=== PATIENT | female | born 1940 | race Caucasian/White ===

== ENCOUNTER 2016-10-20 13:45 | Emergency (ER) | payer OTHER ==
[2016-10-20 13:50] VITALS: TEMP 98.3
[2016-10-20 14:23] VITALS: RESP 18
[2016-10-20] MEDS ORDERED: Lidocaine 1% w Epi 1:100,000 Inj INJ ONE (14:25)
--- NOTE | 2016-10-20 14:28 | C.PDOC ---
History Of Present Illness 76 year old female presents to the ED for evaluation of area of swelling and pain to the posterior midline of the neck for approximately three to four days. Patient was referred from [facility] for incision and drainage. She denies fever or other complaints at this time. Time Seen by Provider: 10/20/16 14:04 Chief Complaint (Nursing): Abnormal Skin Integrity History Per: Patient History/Exam Limitations: no limitations Onset/Duration Of Symptoms: Days (3-4 days ) Current Symptoms Are (Timing): Still Present Quality Of Symptoms: Painful, Swollen Recent travel outside of the [place]: No Additional History Per: Prior Records ([facility] ) Past Medical History Reviewed: Historical Data, Nursing Documentation, Vital Signs Vital Signs: Last Vital Signs Temp 98.3 F 10/20/16 13:48 Pulse 79 10/20/16 15:02 Resp 18 10/20/16 15:02 BP 142/75 10/20/16 15:02 Pulse Ox 98 10/20/16 15:02 - Medical History PMH: Anemia, Depression (NO LONGER), HTN, Hypercholesterolemia, Hypothyroidism Surgical History: Endoscopy - [facility] Procedures HUMERUS BIOPSY (11/07/14) Family History: States: Unknown Family Hx - Social History Hx Alcohol Use: No Hx Substance Use: No Review Of Systems Except As Marked, All Systems Reviewed And Found Negative. Musculoskeletal: Positive for: Neck Pain (posterior midline area of swelling and pain ) Physical Exam - Physical Exam Appears: Well, Non-toxic, No Acute Distress Skin: Warm, Dry, No Rash Head: Atraumatic, Normacephalic Eye(s): bilateral: Normal Inspection, EOMI Nose: Normal Oral Mucosa: Moist Neck: Normal ROM, Supple, Other ((+) 2 cm indurated area with erythema , central pustule noted) Lymphatic: Normal Exam Chest: Symmetrical, No Deformity Cardiovascular: Rhythm Regular Respiratory: Normal Breath Sounds Neurological/Psych: Oriented x3, Normal Speech, Normal Cognition ED Course And Treatment O2 Sat by Pulse Oximetry: 99 (room air ) Progress Note: DIscussed wound care and to return to ER if symptoms persist or worsen. Burr Filer used to ensure understanding. 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 Return to er in 2 days. Prescriptions: Cephalexin [cephalexin] 500 mg PO BID #14 cap Sulfamethoxazole/Trimethoprim [Bactrim DS 800 mg-160 mg] 1 tab PO BID #14 tab Instructions: Abscess Incision and Drainage (ED) Forms: [employer] (Micronesian) Print Language: MALTESE - Clinical Impression Clinical Impression: Abscess - Scribe Statement The provider has reviewed the documentation as recorded by the Scribe Mary Jane Arnold All medical record entries made by the Riaziblindsey were at my direction and personally dictated by me. I have reviewed the chart and agree that the record accurately reflects my personal performance of the history, physical exam, medical decision making, and the department course for this patient. I have also personally directed, reviewed, and agree with the discharge instructions and disposition.
[2016-10-20] MEDS ORDERED: Lidocaine 2% w Epi 1:100,000 Inj IJ ONE (14:29)
[2016-10-20 15:04] VITALS: BP 142/75; PULSE 79
[2016-10-20 16:37] VITALS: O2SAT 99
== END 2016-10-20 15:04 | disposition home or self-care (01) ==
LOC: C.ER 13:45
DX: L02.11 Cutaneous abscess of neck (principal)

== ENCOUNTER 2016-10-22 10:25 | Emergency (ER) | payer OTHER ==
[2016-10-22] MEDS ORDERED: Bacitracin 500 Units/gm Oint Foilpak UD TOP ONE (10:55)
--- NOTE | 2016-10-22 10:58 | C.PDOC ---
History Of Present Illness 76 year old female presents to the ED for wound check, is s/p incision and drainage of an abscess at this posterior neck performed two days ago in [facility] ED. Patient notes abscess has decreased in size and is less painful. She denies fever, nausea, drainage. Time Seen by Provider: 10/22/16 10:38 Chief Complaint (Nursing): Wound Check History Per: Patient History/Exam Limitations: no limitations Onset/Duration Of Symptoms: Days Ago (abscess originally noted 5-6 days ago ), Abscess Current Symptoms Are (Timing): Better Location Of Injury: Posterior: Neck Quality Of Symptoms: Painful Severity: Mild Additional History Per: Prior Records Past Medical History Reviewed: Historical Data, Nursing Documentation, Vital Signs Vital Signs: Last Vital Signs Temp 98.0 F 10/22/16 11:05 Pulse 80 10/22/16 11:05 Resp 14 10/22/16 11:05 BP 151/87 H 10/22/16 11:05 Pulse Ox 97 10/22/16 12:10 - Medical History PMH: Anemia, Depression (NO LONGER), HTN, Hypercholesterolemia, Hypothyroidism Surgical History: Endoscopy - [facility] Procedures HUMERUS BIOPSY (11/07/14) Family History: States: No Known Family Hx - Social History Hx Alcohol Use: No Hx Substance Use: No Review Of Systems Except As Marked, All Systems Reviewed And Found Negative. Constitutional: Negative for: Fever, Chills Cardiovascular: Negative for: Chest Pain, Palpitations Respiratory: Negative for: Cough, Shortness of Breath Gastrointestinal: Negative for: Nausea, Vomiting Skin: Positive for: Other (healing abscess to posterior neck ) Physical Exam - Physical Exam Appears: Well, Non-toxic, No Acute Distress Skin: Warm, Dry, Other (1.5 cm area of induration with mild tenderness to palpation. No drainage.) Eye(s): bilateral: Normal Inspection Oral Mucosa: Moist Cardiovascular: Rhythm Regular Respiratory: Normal Breath Sounds, No Rhonchi, No Wheezing Neurological/Psych: Oriented x3 ED Course And Treatment O2 Sat by Pulse Oximetry: 97 (room air ) Pulse Ox Interpretation: Normal Progress Note: Packing removed by me and patient tolerated well. Area covered with bacitracin and dressing by ED nurse. Patient instructed to continue antibiotics and follow up with PMD/clinic in 1-2 days. He understands he should return to ED if symptoms worsen. Disposition Counseled Patient/Family Regarding: Diagnosis, Need For Followup - Disposition Referrals: [facility] [Outside] Disposition: HOME/ ROUTINE Disposition Time: 11:10 Condition: STABLE Additional Instructions: SEGUIMIENTO CON RYAN DOCTOR / CLNICA EN 1-2 ROBERTSON CONTINA CONNIE ANTIBITICOS SEGN LO DIRIGIDO DEVUELVA A LA ROMAIN DE EMERGENCIA SI LOS SNTOMAS EMPEORARAN Instructions: Acute Wound Care (ED) Forms: [employer] (Tuvaluan) Print Language: IRANIAN - Clinical Impression Clinical Impression: Wound check, abscess - Scribe Statement The provider has reviewed the documentation as recorded by the Scribe Mary Jane Arnold All medical record entries made by the Scribe were at my direction and personally dictated by me. I have reviewed the chart and agree that the record accurately reflects my personal performance of the history, physical exam, medical decision making, and the department course for this patient. I have also personally directed, reviewed, and agree with the discharge instructions and disposition.
[2016-10-22] MEDS ORDERED: Bacitracin 500 Units/gm Oint Foilpak UD ONE (11:05)
[2016-10-22 11:06] VITALS: BP 151/87; PULSE 80; RESP 14; TEMP 98
[2016-10-22 11:19] VITALS: O2SAT 97
== END 2016-10-22 11:21 | disposition home or self-care (01) ==
LOC: C.ER 10:25
DX: Z48.00 Encounter for change or removal of nonsurgical wound dressing (principal)

== ENCOUNTER 2017-05-27 10:22 | Emergency (ER) | payer MEDICARE, OTHER ==
--- NOTE | 2017-05-27 12:30 | C.PDOC ---
History Of Present Illness 76 y/o female with history of HTN and High Cholesterol presents to ED with complaints of headache since 4am this morning. Patient states last night around 7pm she got up from bed and tripped over dog hitting head on night stand, with no loc. Patient states she stayed awake most of the night, finally went to sleep for an hour, woke up around 4 am with pain. Patient states she took her daily medications, and around 8am took 2 tablets of Ibuprofen for the pain. Patient denies vision changes, lightheadedness, neck pain, nausea, vomiting or any other complaints at this time. Time Seen by Provider: 05/27/17 10:40 Chief Complaint (Nursing): Headache History Per: Patient History/Exam Limitations: no limitations Onset/Duration Of Symptoms: Days Current Symptoms Are (Timing): Still Present Quality: "Pain" Past Medical History Reviewed: Historical Data, Nursing Documentation, Vital Signs Vital Signs: Last Vital Signs Temp 98.2 F 05/27/17 14:30 Pulse 66 05/27/17 14:30 Resp 18 05/27/17 14:30 BP 174/83 H 05/27/17 14:30 Pulse Ox 97 05/30/17 21:37 - Medical History PMH: Anemia, Depression (NO LONGER), HTN, Hypercholesterolemia, Hypothyroidism Surgical History: Endoscopy - [facility] Procedures HUMERUS BIOPSY (11/07/14) Family History: States: No Known Family Hx - Social History Hx Alcohol Use: No Hx Substance Use: No Review Of Systems Constitutional: Negative for: Fever, Chills Eyes: Negative for: Vision Change Gastrointestinal: Negative for: Nausea, Vomiting Skin: Negative for: Rash Neurological: Positive for: Headache. Negative for: Weakness, Numbness Physical Exam - Physical Exam Appears: Non-toxic, No Acute Distress Skin: Warm, Dry, No Rash Head: Atraumatic, Normacephalic Eye(s): bilateral: PERRL, EOMI Oral Mucosa: Moist Neck: Normal ROM, No Midline Cervical Tenderness, Supple Cardiovascular: Rhythm Regular Respiratory: Normal Breath Sounds, No Rales, No Rhonchi, No Wheezing Gastrointestinal/Abdominal: Soft, No Tenderness, No Guarding, No Rebound Extremity: Normal ROM, Capillary Refill (<2 seconds) Neurological/Psych: Oriented x3, Normal Speech, Normal Cranial Nerves, Normal Motor, Normal Sensation Gait: Steady ED Course And Treatment O2 Sat by Pulse Oximetry: 97 (RA) Pulse Ox Interpretation: Normal - CT Scan/US CT head w/o contrast Other Rad Studies (CT/US): Read By Radiologist, Radiology Report Reviewed CT/US Interpretation: IMPRESSION: No acute intracranial hemorrhage. Mild chronic white matter and basal nuclei ischemic changes. Mild generalized volume loss. CT cervical Spine Other Rad Studies (CT/US): Read By Radiologist, Radiology Report Reviewed CT/US Interpretation: IMPRESSION: No acute fractures. Multilevel degenerative spondylosis as above Progress Note: Cervical Spine and Head CT w/o contrast ordered. Tylenol administered Medical Decision Making Medical Decision Making: head and cervical spine ct neg for acute pathology. many chronic issues in cervical spine. will d/c pt home with tylenol and with outpt med clinic f/u. discussed results with patients. Disposition Counseled Patient/Family Regarding: Studies Performed, Diagnosis, Need For Followup, Rx Given - Disposition Referrals: [facility] [Outside] Disposition: HOME/ ROUTINE Disposition Time: 14:26 Condition: IMPROVED Additional Instructions: Por favor, tome Tylenol para el dolor si es necesario. Follow up en la clnica m dica lo ms pronto posible. Tenga cuidado en el apartamento cuando se mueva. 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 - Scribe Statement The provider has reviewed the documentation as recorded by the Riaziblindsey Farah All medical record entries made by the Riaziblindsey were at my direction and personally dictated by me. I have reviewed the chart and agree that the record accurately reflects my personal performance of the history, physical exam, medical decision making, and the department course for this patient. I have also personally directed, reviewed, and agree with the discharge instructions and disposition.
[2017-05-27 12:45] VITALS: TEMP 98.2; O2SAT 97
--- NOTE | 2017-05-27 12:56 | CT ---
PROCEDURE: CT scan brain 05/27/2017 HISTORY: Status post fall with head trauma COMPARISON: No prior TECHNIQUE: Axial computed tomography images were obtained through the head/brain without intravenous contrast. Radiation dose: Total exam DLP = 948.16 mGy-cm. This CT exam was performed using one or more of the following dose reduction techniques: Automated exposure control, adjustment of the mA and/or kV according to patient size, and/or use of iterative reconstruction technique. FINDINGS: HEMORRHAGE: No acute parenchymal, subarachnoid nor extra-axial hemorrhage. BRAIN: Mild chronic periventricular white matter ischemic changes with scattered chronic bilateral basal nuclei lacunar type infarcts. . No obvious parenchymal nor extra-axial mass or collection. Mild generalized volume loss. VENTRICLES: No obstructive hydrocephalus. CALVARIUM: No acute calvarial fractures. PARANASAL SINUSES: Unremarkable as visualized. No significant inflammatory changes. MASTOID AIR CELLS: Unremarkable as visualized. No inflammatory changes. OTHER FINDINGS: Changes of bilateral cataract surgery IMPRESSION: No acute intracranial hemorrhage. Mild chronic white matter and basal nuclei ischemic changes. Mild generalized volume loss.
--- NOTE | 2017-05-27 13:45 | CT ---
PROCEDURE: CT Cervical Spine without contrast HISTORY: Fall COMPARISON: None available. TECHNIQUE: Axial computed tomography images were obtained of the cervical spine without the use of intravenous contrast. Coronal and sagittal reformatted images were created and reviewed. Radiation dose: Total exam DLP = 487.66 mGy-cm. This CT exam was performed using one or more of the following dose reduction techniques: Automated exposure control, adjustment of the mA and/or kV according to patient size, and/or use of iterative reconstruction technique. FINDINGS: VERTEBRAE: No acute compression fractures no retropulsed fragments. Minor chronic appearing anterior stature loss of the C4-C5 and to a lesser degree C6 segments likely degenerative in origin. Remaining vertebral bodies otherwise exhibit normal stature. Slight anterior subluxation C3 over C4. Minimal anterior subluxation C7 over T1 Remaining vertebral bodies otherwise exhibit normal alignment. Facets normally aligned. DISCS/SPINAL CANAL/NEURAL FORAMINA: Multilevel degenerative spondylosis. At the C2-C3 level, there is relatively adequate disc height. Intradiscal calcification present. Small irregular disc ridge complex contiguous with minimally overgrown uncovertebral joints. Facets are hypertrophic left greater than right. Central canal and right exit foramen appears adequate. Left exit foramen is mildly narrowed. At the C3-C4 level, there is disc space narrowing with minimal anterior subluxation of C3 over C4. Slight uncovering of the posterior superior surface of the disc with minimal disc ridge complex contiguous with hypertrophic uncovertebral joints larger on the left side. The facets are hypertrophic. There is mild compressive effects on the ventral surface of the thecal sac and spinal cord. Central canal is minimally narrowed. Exit foramina are stenotic bilaterally. At the C4-C5 level, there is disc desiccation, disc space narrowing with subchondral eburnation and as cystic changes. Small irregular disc ridge complex contiguous with hypertrophic uncovertebral joints. The facets are mildly hypertrophic. At the C5 C6 level, there is disc desiccation, disc space narrowing with subchondral eburnation and as cystic changes. Small medium size irregular disc ridge complex contiguous with hypertrophic uncovertebral joints. Moderate compressive effects on the ventral surface of the thecal sac and spinal cord with canal stenosis. The facets are hypertrophic with bilateral stenosis. At the C6 C7 level, there is disc desiccation, disc space narrowing with subchondral eburnation and as cystic changes. Small to medium size irregular disc ridge complex contiguous with hypertrophic uncovertebral joints. Moderate compressive effects on the ventral surface of the thecal sac and spinal cord with canal stenosis. The facets are hypertrophic with bilateral stenosis. PARASPINAL SOFT TISSUES: Unremarkable. OTHER FINDINGS: None. IMPRESSION: No acute fractures Multilevel degenerative spondylosis as above
[2017-05-27 14:30] VITALS: BP 174/83; PULSE 66; RESP 18
== END 2017-05-27 14:38 | disposition home or self-care (01) ==
LOC: C.ER 10:22
DX: R51 Headache (principal); W01.0XXA Fall on same level from slipping, tripping and stumbling without subsequent striking against object, initial encounter